=== PATIENT | male | born 2000 | race Caucasian/White ===

== ENCOUNTER 2020-02-24 17:40 | Emergency (ER) | payer SELFPAY ==
--- NOTE | 2020-02-24 18:15 | ED ---
Psychiatric Complaint - HPI Summary HPI Summary: 19 year old male presents with anger outburst today. He states he has been under a lot of stress and so he said that he wanted to kill himself with a knife. States he did not have a knife near me. He's never cut himself before. He states that it was just an anger outburst and he does not feel this way anymore. Denies any suicidal or homicidal ideation currently. He states he did smoke marijuana today. He has history of smoking marijuana. Denies any alcohol use. No other drug use. He does not see a therapist. Only has history of anger issues. - History Of Current Complaint Chief Complaint: EDMentalHealth Time Seen by Provider: 02/24/20 17:46 - Allergies/Home Medications Allergies/Adverse Reactions: Allergies Allergy/AdvReac Type Severity Reaction Status Date / Time risperidone [From Risperdal] Allergy See Comment Verified 02/24/20 17:45 Home Medications: Home Medications NK [No Home Medications Reported] 02/24/20 [History Confirmed 02/24/20] PMH/Surg Hx/FS Hx/Imm Hx Endocrine/Hematology History: Denies: Hx Diabetes Respiratory History: Denies: Hx Asthma Infectious Disease History: No Infectious Disease History: Denies: Traveled Outside the [place] in Last 30 Days - Family History Known Family History: Positive: Non-Contributory - Social History Alcohol Use: None Substance Use Type: Reports: Marijuana Smoking Status (MU): Heavy Every Day Tobacco Smoker Review of Systems Negative: Fever Negative: Chest Pain Negative: Shortness Of Breath Negative: Anxious, Depressed All Other Systems Reviewed And Are Negative: Yes Physical Exam Triage Information Reviewed: Yes Vital Signs On Initial Exam: Initial Vitals Temp Pulse Resp BP Pulse Ox 99.9 F 110 19 145/83 98 02/24/20 17:41 02/24/20 17:41 02/24/20 17:41 02/24/20 17:41 02/24/20 17:41 Vital Signs Reviewed: Yes Appearance: Positive: Well-Appearing Skin: Positive: Warm, Dry Head/Face: Positive: Normal Head/Face Inspection Eyes: Positive: Normal, Conjunctiva Clear ENT: Positive: Pharynx normal Respiratory/Lung Sounds: Positive: Clear to Auscultation, Breath Sounds Present Cardiovascular: Positive: Normal, RRR Musculoskeletal: Positive: Normal Neurological: Positive: Normal Psychiatric: Positive: Normal Procedures - Sedation Patient Received Moderate/Deep Sedation with Procedure: No Diagnostics - Vital Signs Vital Signs Temp Pulse Resp BP Pulse Ox 02/24/20 17:41 99.9 F 110 19 145/83 98 - Laboratory Result Diagrams: 02/24/20 19:50 Lab Statement: Any lab studies that have been ordered have been reviewed, and results considered in the medical decision making process. Re-Evaluation - Re-Evaluation First Eval Re-Evaluation Time: 19:58 Comment: no SI or HI still Course/Dx - Course Course Of Treatment: 19 year old male presents with anger outburst today. He states he has been under a lot of stress and so he said that he wanted to kill himself with a knife. States he did not have a knife near me. He's never cut himself before. He states that it was just an anger outburst and he does not feel this way anymore. Denies any suicidal or homicidal ideation currently. He states he did smoke marijuana today. He has history of smoking marijuana. Denies any alcohol use. No other drug use. He does not see a therapist. Only has history of anger issues. On exam has normal physical exam. mental health discussed with mom that was just an anger issue. she feels comfortable with him being discharge and will pick him up. as patient story is the same and not having an SI or HI will not due a full mental health. talked about was to reduce stress. patient understand and agrees with plan. - Differential Dx/Clinical Impression Differential Diagnosis/HQI/PQRI: Positive: Anxiety, Depression, Suicidal Ideation Provider Diagnosis: Anger reaction, Stress reaction - Critical Care Time Critical Care Statement: Critical care time is provided exclusive of any time spent performing procedures. Discharge ED - Sign-Out/Discharge Documenting (check all that apply): Patient Departure - Discharge Plan Condition: Good Disposition: HOME Referrals: Rohan Shea, [Don.[email or web address], APPLICATION, OTHER] - Additional Instructions: Follow up with primary Return to ED if develop any new or worsening symptoms - Billing Disposition and Condition Condition: GOOD Disposition: Home
[2020-02-24 19:51] LABS: Urine Appearance Cloudy; Urine Bilirubin Negative (Negative); Urine Blood Negative (Negative); Urine Color Yellow; Urine Glucose Negative (Negative); Urine Ketones Trace (Negative); Urine Nitrite Negative (Negative); Urine Protein 2+(100 mg/dL) (Negative); Urine Specific Gravity 1.019 (1.010-1.030); Urine Urobilinogen Negative (Negative)
[2020-02-24 19:54] LABS: Urine Bacteria Absent (Absent); Urine Red Blood Cell Absent (Absent); Urine Squamous Epithelial Cell Present (Absent); Urine White Blood Cell 1+(6-10/hpf) (Absent)
[2020-02-24 19:55] LABS: ABS Basophils 0.1 10^3/ul (0-0.2); ABS Eosinophils 0.1 10^3/ul (0-0.6); ABS Lymphocytes 3.3 10^3/ul (1.0-4.8); ABS Monocytes 1.4 10^3/ul (0-0.8); ABS Neutrophils 13.3 10^3/ul (1.5-7.7); Eosinophil % 0.6 %; Hematocrit 46 % (42-52); Hemoglobin 16.2 g/dL (14.0-18.0); Lymphocyte % 18.3 %; Mean Corpuscular HGB Conc 36 g/dL (31-36); Mean Corpuscular Hemoglobin 31 pg (27-31); Mean Corpuscular Volume 88 fL (80-94); Mean Platelet Volume 8.6 fL (7.4-10.4); Nucleated Red Blood Cells % 0.1; Platelet Count 266 10^3/uL (150-450); Red Blood Count 5.18 10^6 /uL (4.18-5.48); Red Cell Distribution Width 13 % (10-15); White Blood Count 18.2 10^3/uL (3.5-10.8)
[2020-02-24 20:07] VITALS: BP 129/71
[2020-02-24 20:10] LABS: ALT 49 U/L (7-52); Albumin 4.2 g/dL (3.2-5.2); Albumin/Globulin Ratio 1.6 (1-3); Alkaline Phosphatase 54 U/L (34-104); BUN/Creatinine Ratio 9.6 (8-20); Blood Urea Nitrogen 11 mg/dL (6-24); CO2 Carbon Dioxide 27 mmol/L (22-32); Calcium 9.1 mg/dL (8.6-10.3); Chloride 103 mmol/L (101-111); EGFR African American 99.1 (>60); EGFR Non-African American 81.9 (>60); Globulin 2.6 g/dL (2-4); Glucose 106 mg/dL (70-100); Sodium 138 mmol/L (135-145); Total Protein 6.8 g/dL (6.4-8.9)
[2020-02-24 20:14] LABS: Anion Gap 8 mmol/L (2-11)
[2020-02-24 20:17] LABS: Urine Benzodiazepine Screen None Detected (None Detect); Urine Opiates Screen None Detected (None Detect)
[2020-02-24 20:41] LABS: Acetaminophen < 15 mcg/mL; Alcohol < 10 mg/dL (<10); Salicylate < 2.50 mg/dL (<30)
[2020-02-24 20:57] LABS: TSH (Thyroid Stimulating Horm) 2.15 mcIU/mL (0.34-5.60)
== END 2020-02-24 20:06 | disposition home or self-care (01) ==
LOC: ED 17:40
DX: R45.4 Irritability and anger (principal); F43.9 Reaction to severe stress, unspecified; F17.210 Nicotine dependence, cigarettes, uncomplicated; R45.851 Suicidal ideations
CPT/HCPCS: 36415; 80053; 80307; 80320; 80329; 81003; 81015; 84443; 85025; 87086; 99284; G0480